=== PATIENT | female | born 1945 | race Caucasian/White ===

== ENCOUNTER 2022-10-26 09:49 | Day surgery (SDC) | payer MEDICARE ==
[2022-10-26] VITALS (8 sets, daily range): BP systolic 109–182; BP diastolic 61–86
[~2022-10-26] VITALS: Ht 157.5 cm; Wt 75.9 kg
[2022-10-26] MEDS ORDERED: diphenhydrAMINE 25mg capsule PO PRN (10:25)
[2022-10-26] MEDS ORDERED: normal saline 1,000 ML IV SCH (10:25)
[2022-10-26] MEDS ORDERED: ASPI-1264 PO (10:32)
[2022-10-26] MEDS ORDERED: CALCIUM AND VIT D PO (10:32)
[2022-10-26] MEDS ORDERED: ATEN-236 PO (10:32)
[2022-10-26] MEDS ORDERED: OMEG-5 PO (10:32)
[2022-10-26] MEDS ORDERED: CYAN250014 PO (10:32)
[2022-10-26] MEDS ORDERED: VITAMIN D3 PO (10:32)
[2022-10-26] MEDS ORDERED: ALBU18HF2 INH (10:32)
[2022-10-26] MEDS ORDERED: SIMV-45 PO (10:32)
[2022-10-26] MEDS ORDERED: ASCO125T PO (10:32)
[2022-10-26] MEDS ORDERED: NIAC500C12 PO (10:32)
[2022-10-26] MEDS ORDERED: SUPER B PO (10:32)
[2022-10-26] MEDS ORDERED: FLUT1DIS20 INH (10:32)
[2022-10-26 10:37] LABS: BASOPHILS # (AUTO) 0.1 X10'3 (0-0.2); BASOPHILS % (AUTO) 1.1 % (0-1); EOSINOPHILS # (AUTO) 0.1 X10'3 (0-0.9); EOSINOPHILS % (AUTO) 1.2 % (0-6); HEMATOCRIT 46.6 % (35.0-45.0); HEMOGLOBIN 15.4 g/dl (12.0-16.0); LYMPHOCYTES % (AUTO) 25.9 % (21-51); MEAN PLATELET VOLUME 6.5 FL (7.4-10.4); MONOCYTES # (AUTO) 0.7 X10'3 (0-0.9); MONOCYTES % (AUTO) 8.7 % (2-12); NEUTROPHILS # (AUTO) 4.8 X10'3 (1.8-7.7); NEUTROPHILS % (AUTO) 63.1 % (42-75); PLATELET COUNT 326 X10'3 (140-440); RED CELL DISTRIBUTION WIDTH 13.4 % (11.5-14.5); WHITE BLOOD COUNT 7.6 X10'3 (4.5-11.0)
[2022-10-26] MEDS ORDERED: fentaNYL/PF 50MCG/1 ML 2ML syringe ONE ×2 (10:44→11:26)
[2022-10-26] MEDS ORDERED: verapamil 2.5 mg/ml inj IV ONE (10:44)
[2022-10-26] MEDS ORDERED: midazolam 1 mg/ML 2ml injection ONE ×2 (10:44→11:26)
[2022-10-26] MEDS ORDERED: nitroGLYCERIN-Tridil 50MG/D5W 250 ML IV ONE (10:44)
[2022-10-26] MEDS ORDERED: heparin 1,000unit/ml 10ml vial 10 ML ONE (10:45)
[2022-10-26] MEDS ORDERED: iohexol 350 MG/ML 50ML vial IV ONE (10:45)
[2022-10-26] MEDS ORDERED: LIDOcaine 1% 30ml preserv. free vial ONE (10:45)
[2022-10-26] MEDS ORDERED: iohexol 350MG/ML 100ml bottle IV ONE (10:45)
[2022-10-26 10:47] LABS: ALBUMIN 4.3 G/DL (3.4-5.0); ANION GAP 11 (8-16); BLOOD UREA NITROGEN 16 MG/DL (7-18); BUN/CREATININE RATIO 20.8 (10.0-20.0); CALCIUM 9.8 MG/DL (8.5-10.1); CHLORIDE 103 MMOL/L (99-107); CREATININE 0.77 MG/DL (0.40-0.90); GLUCOSE 90 MG/DL (70-104); MAGNESIUM 1.9 MG/DL (1.5-2.4); POTASSIUM 3.7 MMOL/L (3.5-5.1); SODIUM 141 MMOL/L (135-145); TOTAL CARBON DIOXIDE 27.1 MMOL/L (24-32); eGFR 73 ML/MIN
[2022-10-26] MEDS ORDERED: HYDROcodone/acetaminophen 10/325mg tab PO PRN (12:40)
[2022-10-26] MEDS ORDERED: ondansetron/PF 4mg/2ml inj IV PRN (12:40)
[2022-10-26] MEDS ORDERED: proCHLORperazine 10 MG/2 ml inj IV PRN (12:40)
[2022-10-26] MEDS ORDERED: HYDROcodone/acetaminophen 5mg/325mg tablet PO PRN (12:40)
== END 2022-10-26 15:25 | disposition home or self-care (01) ==
LOC: SSTAY O 09:49
PROVIDERS: ATTEND Internal Medicine Cardiovascular Disease
DX: I25.10 Atherosclerotic heart disease of native coronary artery without angina pectoris (principal); I35.0 Nonrheumatic aortic (valve) stenosis; I25.2 Old myocardial infarction; I10 Essential (primary) hypertension; E78.5 Hyperlipidemia, unspecified; J44.9 Chronic obstructive pulmonary disease, unspecified; Z79.82 Long term (current) use of aspirin; Z79.899 Other long term (current) drug therapy
CPT/HCPCS: 36415; 80048; 83735; 85025; 85610; 93005; 93460; 99152; 99153; C1760; C1769; C1894; J1644; J2250; J3010; J3490; J7030; Q0163; Q9967; A6258; A6449; C1725; C1751

== ENCOUNTER 2025-02-22 08:19 | Day surgery (SDC) | payer MEDICARE ==
[~2025-02-22] VITALS: Ht 165.1 cm; Wt 60.6 kg
[2025-02-22] VITALS (7 sets, daily range): BP systolic 134–163; BP diastolic 72–85; PULSE 73–80; RESP 14–21; O2SAT 94–96
[~2025-02-22 08:19] MED LIST: ALBU18HF2 INH; ASCO125T PO; ASPI-1264 PO; ATEN-236 PO; CALCIUM AND VIT D PO; CYAN250014 PO; FLUT1DIS20 INH; NIAC500C12 PO; OMEG-5 PO; SIMV-45 PO; SUPER B PO; VITAMIN D3 PO
--- NOTE | 2025-02-22 09:00 | ELECTROCARDIOGRAPH REPORT ---
[facility] Test Date: 2025-02-22 Test Time: 08:59:11 Pat Name: YIMI GORDON Department: [facility] Patient ID: [facility]-[id number] Room: Gender: F Rn Eligibility: MOLLY : 1945 Requested By: SANTOSH DAVENPORT Order Number: [id number] Reading MD: Dr. LESLEY Johnston Measurements Intervals [place] Rate: 68 P: 53 MI: 151 QRS: 78 QRSD: 90 T: 6 QT: 385 QTc: 410 Interpretive Statements Sinus rhythm Anterior infarct, old Electronically Signed On 02-22-2025 16:40:[address] LESLEY Johnston Please click the below link to view image of tracing.
[2025-02-22] MEDS: sodium bicarbonate 1meq/ml syr 150 ML in dextrose 5%-water 1,000 ML IV ONE (09:05)
[2025-02-22] MEDS ORDERED: NITR0.4T51 SL (09:07)
[2025-02-22] MEDS ORDERED: FAMO20TA8 PO (09:07)
[2025-02-22 09:36] LABS: MEAN PLATELET VOLUME 6.3 FL (7.4-10.4); RED CELL DISTRIBUTION WIDTH 15.8 % (11.5-14.5)
[2025-02-22 09:53] LABS: CREATININE 0.57 MG/DL (0.40-0.90); TOTAL CARBON DIOXIDE 26.5 MMOL/L (24-32); eCRCL 71 ML/MIN; eGFR > 90 ML/MIN
[2025-02-22 10:15] LABS: INR 1.0 INR
[2025-02-22] MEDS ORDERED: verapamil 2.5 mg/ml inj IV ONE (10:34)
[2025-02-22] MEDS ORDERED: LIDOcaine 1% 30ml preserv. free vial ONE (10:34)
[2025-02-22] MEDS ORDERED: midazolam 1 mg/ML 2ml injection ONE (10:34)
[2025-02-22] MEDS ORDERED: heparin 1,000unit/ml 10ml vial 10 ML ONE (10:34)
[2025-02-22] MEDS ORDERED: iohexol 350 MG/ML 50ML vial IV ONE (10:34)
[2025-02-22] MEDS ORDERED: fentaNYL/PF 50MCG/1 ML 2ML syringe ONE (10:34)
[2025-02-22] MEDS ORDERED: nitroGLYCERIN 500mcg/5mL D5W 5 ML IV ONE (10:35)
[2025-02-22] MEDS ORDERED: HYDROcodone/acetaminophen 10/325mg tab PO PRN (12:35)
[2025-02-22] MEDS ORDERED: ondansetron/PF 4mg/2ml inj IV PRN (12:35)
[2025-02-22] MEDS: HYDROcodone/acetaminophen 5mg/325mg tablet PO PRN (12:45)
--- NOTE | 2025-02-22 13:06 | CARDIOLOGY REPORT ---
DATE OF SERVICE: 02/22/2025 DICTATING PHYSICIAN: SANTOSH DAVENPORT DO CARDIAC CATHETERIZATION REPORT REFERRING PHYSICIAN: Dakota Cook MD. CLINICAL HISTORY: This 79-year-old woman has low-level exertional dyspnea. She also has an echocardiogram demonstrating findings consistent with severe aortic stenosis. PROCEDURES PERFORMED: * Right heart catheterization * Left heart catheterization * Left ventriculography * Selective coronary arteriography * 60 minutes of conscious sedation and supervision. DESCRIPTION OF PROCEDURE: The patient was sedated with fentanyl and Versed. She was then prepared and draped in the usual manner. Using a standard technique, an 8-Wallisian sheath was placed in the femoral vein and a 6-Wallisian sheath was placed in the right radial artery. As regards the artery, 200 mcg of nitroglycerin and 2.5 mg of verapamil were directly injected into the radial artery. 5,000 units of heparin were given in a peripheral IV. Right heart catheterization was performed using a 7.5-Wallisian Enfield-Becky catheter. Cardiac output was determined using a thermal dilution technique. Left heart catheterization and left ventriculography were performed using a double lumen Norwood catheter. Simultaneous pressure recordings were obtained in both the ventricle and the ascending aorta. Coronary arteriography was performed using a 6-Wallisian Kimny catheter for the left coronary artery and a 6-Wallisian #4 right Nicky catheter for the right coronary artery. The radial sheath was removed and Vasc band was applied. Direct pressure was applied to the access site after removal of the femoral venous catheter. RESULTS: HEMODYNAMIC DATA: The mean right atrial pressure was 3 mmHg. Right ventricular pressure was 19/5 mmHg. PA pressure was 21/13 mmHg. Mean pulmonary capillary wedge pressure was 11 mmHg. Left ventricular end diastolic pressure was also 11 mmHg. There was a 41 mm peakgradient across the aortic valve. Cardiac output by thermal dilution technique was 5.25 liters per minute. The calculated aortic valve area was 0.82 cm2. LEFT VENTRICULOGRAM: The left ventriculogram was technically satisfactory. The ejection fraction appeared to be at least 70%. CORONARY ARTERIOGRAPHY: The coronary arteriograms were technically satisfactory. The patient had what looks like a codominant system. LEFT MAIN CORONARY ARTERY: The left main was a large, very short vessel immediately bifurcating into left anterior descending and circumflex coronary arteries. LEFT ANTERIOR DESCENDING CORONARY ARTERY: The LAD was a medium to large sized transapical vessel. There was a large very proximal diagonal branch that had the distribution of an intermediate artery. There was also a second proximal diagonal branch graded to be as medium to large in size. The origin was narrowed by about 50%. There were no high-grade stenoses in the left anterior descending coronary artery. CIRCUMFLEX CORONARY ARTERY: The circumflex was a large main stem vessel. There was a large proximal first diagonal obtuse marginal branch. There was a tiny second and a medium-sized third obtuse marginal and the latter two taking their origin in the posterolateral region. There was a very small terminal branch, which was considered a posterolateral. There were no obstructive lesions in the circumflex coronary artery. RIGHT CORONARY ARTERY: The right coronary was a large main stem vessel. There was a small posterior descending branch and two small posterolateral branches. There were no obstructive lesions in the right coronary artery. CONCLUSIONS: 1. Pulmonary arterial pressures were normal. 2. Severe aortic stenosis. The calculated aortic valve area was 0.82 cm2. 3. Left ventricular function was normal. The ejection fraction appeared to be at least 70%. 4. No evidence for high-grade obstructive coronary disease; however, there was a 50% narrowing at the origin of the second LAD diagonal. RECOMMENDATIONS: Recommendation is ongoing medical therapy with consideration of TAVR. SANTOSH DAVENPORT DO TID: [id number] RECEIPT: [id number] MECCA GUAJARDO
== END 2025-02-22 15:40 | disposition home or self-care (01) ==
LOC: SSTAY O 08:19
PROVIDERS: ATTEND Internal Medicine Cardiovascular Disease
DX: I35.0 Nonrheumatic aortic (valve) stenosis (principal); I25.10 Atherosclerotic heart disease of native coronary artery without angina pectoris; I25.2 Old myocardial infarction; I10 Essential (primary) hypertension; E78.5 Hyperlipidemia, unspecified; J44.9 Chronic obstructive pulmonary disease, unspecified; Z79.899 Other long term (current) drug therapy; Z98.890 Other specified postprocedural states
CPT/HCPCS: 36415; 80048; 83735; 85025; 85610; 93005; 93460; 99152; A6258; A6402; C1751; C1769; C1887; C1894; J1644; J2003; J2250; J3010; J3490; J7030; J7070; Q0163; Q9967; Z7610; 99153; A4615; A6449

== ENCOUNTER 2025-03-18 09:21 | Outpatient (CLI) | payer MEDICARE ==
[~2025-03-18 09:21] MED LIST changes: +FAMO20TA8 PO; +IODIXANOL 320 MG/ML INFUS..BTL 100ML IV ONE; +NITR0.4T51 SL
[2025-03-18 10:03] LABS: MEAN PLATELET VOLUME 6.7 FL (7.4-10.4); RED CELL DISTRIBUTION WIDTH 16.0 % (11.5-14.5)
[2025-03-18 10:19] LABS: APTT 26 SECONDS (22-32); INR 1.0 INR
--- NOTE | 2025-03-18 10:21 | RADIOLOGY REPORT ---
CHEST RADIOGRAPH Indication: AV STENOSIS,SOB,CAROTID STENOSIS Technique: Frontal and lateral view of the chest was obtained Comparison: None FINDINGS: Lines and Tubes: None Lungs: Clear Pleura: No effusion. No pneumothorax. Cardiomediastinal contours: Moderate hiatal hernia. Vascular calcifications of the aorta. Bones: Unremarkable IMPRESSION: No evidence of acute disease.
[2025-03-18 10:24] LABS: CREATININE 0.62 MG/DL (0.40-0.90); PRO BRAIN NATRIURETIC PEPTIDE 266 PG/ML (0-450); TOTAL CARBON DIOXIDE 29.4 MMOL/L (24-32); eGFR > 90 ML/MIN
--- NOTE | 2025-03-18 12:11 | VASCULAR REPORT ---
Carotid Duplex Date: 03/18/2025 10:01 AM Clinical History: pre op tavr Comparison: None Technique: Duplex Doppler evaluation of the extracranial carotid and vertebral arteries including color Doppler and spectral/pulsed waveform analysis was performed. Indications Preop for TAVR. Doppler Spectral Velocity Analysis Right Left pCCA 101/20 cm/s pCCA 89/23 cm/s dCCA 63/19 cm/s dCCA 75/16 cm/s ECA 67/ cm/s ECA 51/cm/s pICA 61/17 cm/s pICA 87/21 cm/s Stephanie 79/20 cm/s Stephanie 83/25 cm/s dICA 92/25 cm/s dICA Vert. 45/10 cm/s 64/21 cm/s Vert. 34/10 cm/s Subcl. 138/ cm/s Subcl. 109/ cm/s ICA/CCA 1.46 ICA/CCA 1.16 Real-Time B-Mode Imaging Area Findings Right Left CCA Plaque Composition Intimal thickening Heterogeneous with calcification Plaque Description Smooth Plaque Area Focal BIF Plaque Composition Heterogeneous with calcification Heterogeneous with calcification Plaque Description Irregular Irregular Plaque Area Focal Focal Vertebral Antegrade Antegrade Subclavian Multiphasic Multiphasic CONCLUSION No sonographic evidence of stenosis or occlusion bilateral carotid arteries. Bilateral common carotid arteries showed less than 50% stenosis. Bilateral external carotid arteries showed less than 50% stenosis. Bilateral internal carotid arteries showed less than 50% stenosis. Antegrade flow noted in bilateral vertebral arteries. Multiphasic flow noted in bilateral subclavian arteries.
--- NOTE | 2025-03-19 19:34 | RADIOLOGY REPORT ---
CT CTA TAVR INDICATION: Stenosis TECHNIQUE: Gated CT angiography of the heart was performed along with CT angiography of the lower neck, chest, abdomen, and pelvis. MIP, MPR, and 3-D images were obtained. Measurements were performed on the [employer] workstation. All CT scans at this facility use dose modulation, iterative reconstruction, and/or weight based dosing when appropriate to reduce radiation dose to as low as reasonably achievable. COMPARISON: CATH HEART CATH W/WO STENT on DOS: 02/22/25 FINDINGS: ANNULAR PLANE DISTANCE: 24.1 x 20.3 mm AREA: 3.63 cm2 AVERAGE DIAMETER: 22.2 mm PERIMETER: 69.5 mm LEFT CORONARY ARTERY HEIGHT ABOVE ANNULAR PLANE: 10.1 mm RIGHT CORONARY ARTERY HEIGHT ABOVE ANNULAR PLANE: 12.7 mm LEFT CORONARY SINUS DIAMETER: 30.4 mm RIGHT CORONARY SINUS DIAMETER: 27.3 mm NONCORONARY CORONARY SINUS DIAMETER: 28.9 mm SINOTUBULAR JUNCTION DIAMETER: 23.4 mm RIGHT COMMON ILIAC ARTERY MINIMAL DIMENSIONS: 4.01 mm RIGHT EXTERNAL ILIAC ARTERY MINIMAL DIMENSIONS: 7.31 mm RIGHT COMMON FEMORAL ARTERY MINIMAL DIMENSIONS: 5.5 mm LEFT COMMON ILIAC ARTERY MINIMAL DIMENSIONS: 9.5 mm LEFT EXTERNAL ILIAC ARTERY MINIMAL DIMENSIONS: 7.2 mm LEFT COMMON FEMORAL ARTERY MINIMAL DIMENSIONS: 6.3 mm [LOWER NECK]: Unremarkable [LYMPH NODES/MEDIASTINUM]: No abnormal lymph nodes by CT size criteria [CARDIOVASCULAR]: Normal cardiac size. No pericardial effusion. No aneurysmal dilatation of the great vessels. Coronary artery calcifications. [LUNG PARENCHYMA/PLEURAL SPACE]: At least moderate centrilobular emphysema. Biapical pleural-parenchymal scarring. pleural-parenchymal scarring small amount of tracheal secretions. [CHEST WALL]: Unremarkable. [LIVER]: Normal hepatic size without suspicious focal lesion. [SPLEEN]: Unremarkable. [PANCREAS]: Unremarkable. [GALLBLADDER AND BILIARY TREE]: No cholelithiasis. No biliary dilatation. [ADRENAL GLANDS]: Unremarkable [KIDNEYS]: No hydronephrosis. No nephroureterolithiasis. No suspicious focal lesion. [BLADDER]: Unremarkable for the degree distention. [PELVIC ORGANS]: Unremarkable. [BOWEL/MESENTERY]: Moderately sized sliding hiatal hernia [id number] stool burden medialization of the cecum. Normal appendix. [ASCITES]: Absent [LYMPHADENOPATHY]: No pathologically enlarged lymph nodes by CT size criteria [VASCULATURE]: Vascular calcifications. [ABDOMINAL WALL]: Unremarkable. [MUSCULOSKELETAL]: No acute fracture or aggressive focal osseous lesion. Multifocal degenerative change of the visualized spine. IMPRESSION: 1. CT TAVR measurements as detailed above.
== END 2025-03-18 23:59 | disposition home or self-care (01) ==
LOC: RAD 09:21
PROVIDERS: ATTEND Internal Medicine Cardiovascular Disease
DX: Z01.818 Encounter for other preprocedural examination (principal); I65.23 Occlusion and stenosis of bilateral carotid arteries; I35.0 Nonrheumatic aortic (valve) stenosis; I25.10 Atherosclerotic heart disease of native coronary artery without angina pectoris; J43.2 Centrilobular emphysema; K44.9 Diaphragmatic hernia without obstruction or gangrene; J98.4 Other disorders of lung; R06.02 Shortness of breath; F50.89 Other specified eating disorder
CPT/HCPCS: 36415; 71046; 71275; 74174; 75572; 80053; 83880; 85025; 85610; 85730; 93880; Q9967